=== PATIENT | male | born 1985 | race Caucasian/White ===

== ENCOUNTER 2018-08-20 07:33 | Day surgery (SDC) | payer OTHER ==
[~2018-08-20] VITALS: Ht 188 cm; Wt 90.7 kg
[2018-08-20] MEDS ORDERED: MIDAZOLAM HCL 5 MG/5 ML VIAL ONE (07:54)
[2018-08-20] MEDS ORDERED: SIMETHICONE 40 MG/0.6 ML ML ONE (07:54)
[2018-08-20] MEDS ORDERED: fentaNYL CITRATE/PF 100 MCG/2 ML AMP ONE ×2 (07:54→08:45)
[2018-08-20 10:35] VITALS: BP_SYST 120
== END 2018-08-20 09:50 | disposition home or self-care (01) ==
LOC: SDS 07:33 → SMU 07:45 → SDS 09:50
PROVIDERS: ATTEND Surgery
DX: K60.3 Anal fistula (principal); K62.89 Other specified diseases of anus and rectum; K64.8 Other hemorrhoids
CPT/HCPCS: 45380; 88305; J2250; J3010

== ENCOUNTER 2018-10-02 10:44 | Day surgery (SDC) | payer OTHER ==
[~2018-10-02] VITALS: Ht 188 cm; Wt 95.3 kg
[2018-10-02] MEDS ORDERED: CEFAZOLIN 2 GM IVPB PREMIX 50 ML IV ONE (12:00)
[2018-10-02] MEDS ORDERED: CEFAZOLIN 1 GM IVPB PREMIX 50 ML IV ONE (12:15)
[2018-10-02] MEDS ORDERED: ACETAMINOPHEN 500 MG TABLET PO PRN (13:30)
[2018-10-02] MEDS ORDERED: MORPHINE 4 MG/ML INJ. SYRINGE IVP PRN ×4 (13:30→13:45)
[2018-10-02] MEDS ORDERED: ONDANSETRON HCL 4 MG/2 ML VIAL IVP PRN (13:30)
[2018-10-02] MEDS ORDERED: LR 1,000 ML IV SCH (13:34)
[2018-10-02] MEDS ORDERED: METOCLOPRAMIDE HCL 10 MG/2 ML VIAL IVP PRN (13:45)
[2018-10-02] MEDS ORDERED: MORPHINE 4 MG/ML INJ. SYRINGE ONE (14:25)
[2018-10-02 15:13] VITALS: BP_SYST 126
== END 2018-10-02 17:20 | disposition home or self-care (01) ==
LOC: SDS 10:44 → SMU 10:45 → SDS 17:20
PROVIDERS: ATTEND Surgery
DX: K60.3 Anal fistula (principal)
CPT/HCPCS: 46275; 88304; J0690; J2270; J7120